=== PATIENT | male | born 1960 | race Caucasian/White ===

== ENCOUNTER 2020-10-02 06:04 | Day surgery (SDC) | payer BC ==
[2020-09-26 14:33] LABS: BASOPHILS % (AUTO) 0.6 % (0-1); EOSINOPHILS # (AUTO) 0.1 X10'3 (0-0.9); EOSINOPHILS % (AUTO) 0.8 % (0-6); LYMPHOCYTES % (AUTO) 27.3 % (21-51); MEAN CORPUSCULAR HEMOGLOBIN 29.2 PG (27.0-31.0); MEAN CORPUSCULAR VOLUME 85.8 FL (78-98); MEAN PLATELET VOLUME 7.3 FL (7.4-10.4); MONOCYTES # (AUTO) 0.4 X10'3 (0-0.9); NEUTROPHILS # (AUTO) 4.8 X10'3 (1.8-7.7); NEUTROPHILS % (AUTO) 65.3 % (42-75); PRE OP HEMATOCRIT 39.2 % (42.0-52.0); PRE OP HEMOGLOBIN 13.3 g/dL (14.0-17.9); PRE OP PLATELET COUNT 249 X10'3 (140-440); RED BLOOD COUNT 4.57 X10'6 (4.70-6.10); RED CELL DISTRIBUTION WIDTH 12.6 % (11.5-14.5)
[2020-09-26 14:43] LABS: PRE OP PROTIME 10.3 SECONDS (9.0-12.0)
[2020-09-26 14:51] LABS: ALBUMIN/GLOBULIN RATIO 1.1 (1.1-1.5); ALKALINE PHOSPHATASE 72 IU/L (46-116); BLOOD UREA NITROGEN 15 MG/DL (7-18); BUN/CREATININE RATIO 14.7 (5.4-32.0); CALCIUM 8.9 MG/DL (8.5-10.1); CHLORIDE 101 MMOL/L (99-107); CREATININE 1.02 MG/DL (0.60-1.10); PRE OP ALT 33 U/L (30-65); PRE OP ANION GAP 10 (8-16); PRE OP AST 22 U/L (10-37); PRE OP BILIRUB, TOTAL 0.3 MG/DL (0.0-1.0); PRE OP GLUCOSE 118 MG/DL (70-104); PRE OP SODIUM 139 MMOL/L (135-145); TOTAL CARBON DIOXIDE 27.6 MMOL/L (24-32); TOTAL PROTEIN 7.5 G/DL (6.4-8.2); eGFR 75 ML/MIN
[~2020-10-02] VITALS: Ht 190.5 cm; Wt 101.4 kg
[2020-10-02] VITALS (35 sets, daily range): BP systolic 132–179; BP diastolic 61–108
[~2020-10-02 06:04] MED LIST: MUCINEX; OMEP20TA23 PO; famotidine 20mg tablet PO ONE; oxymetazoline 15 ML nasal spray NS PRN; ringers solution, lacted 1,000 ML IV SCH
[2020-10-02] MEDS ORDERED: LIDOcaine 1% (10mg/ml) 2ml vial ONE (06:41)
[2020-10-02] MEDS ORDERED: cocaine 4% topical solution 4ml bottle ONE (06:46)
[2020-10-02] MEDS ORDERED: methylPREDNISolone acetate 80mg/ml inj**IM only ONE (06:47)
[2020-10-02] MEDS ORDERED: mupirocin 2% ointment 22GM ONE (06:47)
[2020-10-02] MEDS ORDERED: oxymetazoline 15 ML nasal spray NS ONE (06:47)
[2020-10-02] MEDS ORDERED: cefTAZidime 1gm inj ONE (06:47)
[2020-10-02] MEDS ORDERED: LIDOcaine 1% W/epiNEPHrine 1:100,000 20ml vial ONE (06:47)
[2020-10-02] MEDS ORDERED: fentaNYL/PF 50MCG/1 ML 2ML syringe ONE (08:04)
[2020-10-02] MEDS ORDERED: midazolam 2 mg/2 ml injection ONE (08:05)
[2020-10-02] MEDS ORDERED: propofol inj 20 ML IV ONE (08:06)
[2020-10-02] MEDS ORDERED: sevoflurane 250ml liquid IH ONE (08:06)
[2020-10-02] MEDS ORDERED: rocuronium 10mg/ml inj IV ONE (08:07)
[2020-10-02] MEDS ORDERED: proCHLORperazine 10 MG/2 ml inj IV PRN (08:45)
[2020-10-02] MEDS ORDERED: ondansetron/PF 4mg/2ml inj IV PRN (08:45)
[2020-10-02] MEDS ORDERED: morphine 2 MG/ML inj. syringe IV PRN (08:45)
[2020-10-02] MEDS ORDERED: ringers solution, lacted 1,000 ML IV SCH (08:45)
[2020-10-02] MEDS ORDERED: morphine 4 MG/ML inj SYRINge IV PRN (08:45)
[2020-10-02] MEDS ORDERED: labetalol 20mg/4ml (5mg/ml) syringe IV PRN (08:45)
[2020-10-02] MEDS ORDERED: meperidine/PF 25mg/ml syringe IV PRN ×3 (08:45)
[2020-10-02] MEDS ORDERED: dexamethasone sod phosphate 4mg/ml inj. ONE (09:13)
[2020-10-02] MEDS ORDERED: ePHEDrine 50MG/ML INJ. ONE (09:13)
[2020-10-02] MEDS ORDERED: ondansetron/PF 4mg/2ml inj ONE (09:42)
[2020-10-02] MEDS ORDERED: glycopyrrolate 0.2mg/ml inj ONE (09:42)
[2020-10-02] MEDS ORDERED: neostigmine methylsulfate 1 MG/ML 10ml vial ONE (09:42)
--- NOTE | 2020-10-02 09:55 | NUR ---
Received from OR via [facility], accompanied by Anesthesiologist DR RIOS and report given by Anesthesiologist. PATIENT WAKING UP, DENIES PAIN, V/S WNL, CSM INTACT, 20G PIV TO RUE, COTTONOID PACKING TO BILATERALLY SINUSES WITH NO ACTIVE DRAINAGE VISABLE AT THIS TIME
[2020-10-02] MEDS ORDERED: salt irrigation nasal spray 45 ML SPRAY NS SCH (10:23)
--- NOTE | 2020-10-02 10:37 | NUR ---
cottonoids removed as ordered, pt tolerated well. taking sips of water, refusing any pain meds at this time, vss
--- NOTE | 2020-10-02 11:06 | NUR ---
PT HAVING SHIVERS AND PAIN 6/10 IN FOREHEAD AREA - 25MG IV DEMEROL GIVEN, TAKING SIPS OF WATER, NO BLEEDING FROM NOSE AT THIS TIME. VSS
--- NOTE | 2020-10-02 12:35 | NUR ---
PT DRESSED, WALKED TO BATHROOM-UNABLE TO VOID, ENC DRINKING AND IVF RUNNING, DR WANG IN TO SEE PT-NO NEW ORDERS GIVEN
[2020-10-02] MEDS ORDERED: hydrALAZINE 20mg/ml inj. IV PRN (14:10)
--- NOTE | 2020-10-02 15:00 | NUR ---
PT STILL HAVING ELEVATED BP'S AFTER A DOES OF TRANDATE AND HYDRALAZINE, SCANNED TO HAVE 381CC IN BLADDER BUT STILL UNABLE TO VOID, DR WANG AWARE, PAT TO BE TAKEN TO PAS UNIT TO TAKE OVER CARE AND STRAIGHT CATH. TAKEN VIA GURNEY WITH BELONGINGS, REPORT GIVEN TO NASIMA EPSTEIN
--- NOTE | 2020-10-02 16:45 | NUR ---
PT. DISCHARGED HOME AT 1645 TO AT FRONT ENTRANCE VIA WC ACCOMPANIED BY NURSE. PT. ABLE TO AMBULATE AND TRANSFER TO VEHICLE. ALL BELONGINGS AND BAG OF SUPPLIES/ MEDS SENT WITH PT. PT. UNABLE TO VOID ADEQUATE AMOUNT. BLADDER SCAN AT 1605, 561 ML URINE NOTED. STRAIGHT CATH UTILIZED WITH 900 ML OUTPUT. PT. TOLERATED WELL. 250 ML ORAL INTAKE, 150 ML IV FLUIDS. IV REMOVED FROM R. WRIST, INTACT, NO S/S OF PHEBITIS OR INFILTRATION NOTED. PT. REPORTED HEADACHE OF 4/10. DISCHARGE PAIN MEDICATION GIVEN. PT. SWALLOWED WELL. VSS. LUNGS CLEAR TO AUSCULTATION THROUGHOUT. MOVES ALL EXTREMITIES WELL. SALINE SPRAY UTILIZED PRIOR TO DISCHARGE AND 4X4 AT NOSE CHANGED WITH SMALL AMOUNT OF DARK RED BLOOD NOTED. DISCHARGE INSTRUCTIONS REVIEWED WITH PT. PT. VERBALIZES UNDERSTANDING.
== END 2020-10-02 16:45 | disposition home or self-care (01) ==
LOC: PAS 06:04
PROVIDERS: ATTEND Otolaryngology
DX: J34.2 Deviated nasal septum (principal); J34.3 Hypertrophy of nasal turbinates; J32.8 Other chronic sinusitis; K21.9 Gastro-esophageal reflux disease without esophagitis; Z20.822 Contact with and (suspected) exposure to COVID-19; Z79.01 Long term (current) use of anticoagulants; Z79.899 Other long term (current) drug therapy; Z98.890 Other specified postprocedural states; Z72.89 Other problems related to lifestyle; Z96.651 Presence of right artificial knee joint
CPT/HCPCS: 30140; 30520; 31253; 31259; 31267; 36415; 61782; 70486; 80053; 82948; 85025; 85576; 85610; 85730; 87426; 87635; 93005; A6402; C9250; J0360; J0713; J1040; J1100; J2001; J2175; J2250; J2405; J2704; J2710; J3010; J7040; A4618; A7000; J3490; J7120